=== PATIENT | female | born 1990 | race African-American/Black ===

== ENCOUNTER 2019-03-24 20:01 | Emergency (ER) | payer OTHER ==
[~2019-03-24] VITALS: Ht 162.6 cm; Wt 54.4 kg
[2019-03-24] MEDS ORDERED: PENICILLIN V P500 MG PO (20:21)
[2019-03-24] MEDS ORDERED: IBUPROFEN 800800 M1 PO (20:21)
[2019-03-24] MEDS ORDERED: NORCO 5-325 TA1 EAC1 PO (20:21)
[2019-03-24 20:25] VITALS: BP 125/81
== END 2019-03-24 20:25 | disposition home or self-care (01) ==
LOC: M.ERS 20:01
DX: K04.7 Periapical abscess without sinus (principal)